=== PATIENT | male | born 1970 | race Caucasian/White ===

== ENCOUNTER 2022-06-27 12:16 | Outpatient (CLI) | payer OTHER, SELFPAY | END 2022-06-27 12:17 | disposition home or self-care (01) | PROVIDERS: PCP Family Medicine; Visit Provider Family Medicine | DX: Z00.00 Encounter for general adult medical examination without abnormal findings (principal); E66.01 Morbid (severe) obesity due to excess calories; E03.9 Hypothyroidism, unspecified; R73.03 Prediabetes; Z13.6 Encounter for screening for cardiovascular disorders | CPT/HCPCS: 80053; 80061; 84443 ==

== ENCOUNTER 2022-10-26 19:38 | Outpatient (CLI) | payer OTHER, SELFPAY ==
--- NOTE | 2022-11-05 10:22 | W.PM.SLEEP ---
Sleep Study Details Details Interpreting Provider: Joel Date of Sleep Study: 10/26/22 Sleep Study Details: STUDY TYPE:? Home unattended ? BMI:? 45.6 ORDERING PROVIDER:? Joel INDICATION:? Concerns about sleep apnea ? SLEEP SUMMARY:? 323.9 minutes monitored RESPIRATORY SUMMARY:? AHI 52.1 with minimal positional variation Low oxygen 64 16.2% of study oxygen less than 90% Snoring 34.8% PERIODIC LIMB MOVEMENTS OF SLEEP:? Not recorded during home study CARDIAC:? Range 55-108, mean 73.4 IMPRESSION:? Severe obstructive sleep apnea without significant positional variation RECOMMENDATION: Recommend AutoSet CPAP pressure 4-18. Weight loss is also recommended.
== END 2022-10-26 19:39 | disposition home or self-care (01) ==
LOC: SLEEP 19:39
PROVIDERS: PCP Family Medicine; Visit Provider Family Medicine
DX: G47.33 Obstructive sleep apnea (adult) (pediatric) (principal)
CPT/HCPCS: 95806